=== PATIENT | male | born 1950 | race Caucasian/White ===

== ENCOUNTER 2016-06-19 16:52 | Emergency (ER) | payer MEDICARE, OTHER ==
[~2016-06-19 16:52] MED LIST: BLOOD PRESSURE MED PO; CHOLESTEROL MED PO; PRIN20 PO; VISINE0.05 % OP; ZOCOR10 PO
== END 2016-06-19 21:13 | disposition home or self-care (01) ==
LOC: ER 16:52
DX: S00.03XA Contusion of scalp, initial encounter (principal); S00.212A Abrasion of left eyelid and periocular area, initial encounter; M25.511 Pain in right shoulder; I10 Essential (primary) hypertension; F17.200 Nicotine dependence, unspecified, uncomplicated; Z88.0 Allergy status to penicillin; Z79.899 Other long term (current) drug therapy; W19.XXXA Unspecified fall, initial encounter
CPT/HCPCS: 70450; 99285